=== PATIENT | female | born 1965 | race African-American/Black ===

== ENCOUNTER 2018-07-31 13:58 | Outpatient (CLI) | payer BC ==
--- NOTE | 2018-07-31 14:34 | MMO ---
Bilateral MAMMO Bilat Screen [facility]. CLINICAL HISTORY: Patient is 52 years old and is seen for screening. The patient has the following family history of breast cancer: sister, at age 40. The patient has no personal history of cancer. VIEWS: The views performed were: bilateral craniocaudal with tomosynthesis and bilateral mediolateral oblique with tomosynthesis. FILMS COMPARED: The present examination has been compared to prior imaging studies performed at [facility] on 03/01/2009, 07/01/2012 and 03/08/2016. MAMMOGRAM FINDINGS: There are scattered fibroglandular densities. There are no suspicious masses, suspicious calcifications, or new areas of architectural distortion. IMPRESSION: THERE IS NO MAMMOGRAPHIC EVIDENCE OF MALIGNANCY. A ROUTINE FOLLOW-UP MAMMOGRAM IN 1 YEAR IS RECOMMENDED. THE RESULTS OF THIS EXAM WERE SENT TO THE PATIENT. ACR BI-RADS Category 1 - Negative MAMMOGRAPHY NOTE: 1. A negative mammogram report should not delay a biopsy if a dominant of clinically suspicious mass is present. 2. Approximately 10% to 15% of breast cancers are not detected by mammography. 3. Adenosis and dense breasts may obscure an underlying neoplasm.
--- NOTE | 2018-07-31 15:49 | ULT ---
PELVIS ULTRASOUND: INDICATIONS: A 52-year-old female with menorrhagia. TECHNIQUE: Transabdominal and endovaginal ultrasound of the pelvis performed. FINDINGS: The uterus is mildly prominent and heterogeneous. Uterine measurements recorded at 8.5 x 5.4 x 4.3 c m. The endometrium is within the normal range, measured at 2 to 3 mm. The left ovary shows a left ovarian cyst/follicle, measuring up to 1.5 cm. The left ovary is otherwi se unremarkable. Color Doppler and spectral analysis demonstrates blood flow to the left ovary. The right ovary is not identified. The technologist described an elongated, tubular structure in the right adnexa, which could represent a prominent fallopian tube. Incidentally noted, on the distended bladder, is a small calculus on the floor of the bladder, which measures approximately 1 cm. IMPRESSION: 1. The uterus is mildly prominent and heterogeneous. The endometrial stripe is normal. 2. Prominent follicular cyst, left ovary, measuring 1.5 cm. 3. Right ovary not identified. Question prominent fallopian tube in the right adnexa. 4. Small calculus seen in the bladder. Pelvic MRI could further evaluate the ovaries if clinically indicated. POS: [facility]
== END 2018-07-31 13:59 | disposition home or self-care (01) ==
LOC: BICULT 13:58
PROVIDERS: ATTEND Advanced Practice Midwife
DX: Z12.31 Encounter for screening mammogram for malignant neoplasm of breast (principal); N92.1 Excessive and frequent menstruation with irregular cycle; N21.0 Calculus in bladder; N83.02 Follicular cyst of left ovary; Z80.3 Family history of malignant neoplasm of breast
CPT/HCPCS: 76856; 77063; 77067